=== PATIENT | female | born 1985 | race African-American/Black ===

== ENCOUNTER 2019-02-28 04:27 | Emergency (ER) | payer MEDICAID ==
[~2019-02-28] VITALS: Ht 172.7 cm; Wt 65.8 kg
--- NOTE | 2019-02-28 04:27 | NUR ---
ED Nurse Note: Patient in room one labs drawn. Complaining of tightness in stomach has just started menstrual cycle. Feeslnauseous, retching and produced only foam - no vomit.
[2019-02-28] MEDS ORDERED: Dicyclomine HCl 10mg/5ml oral soln ORAL ONE (04:45)
[2019-02-28] MEDS ORDERED: Mylanta II UD 30ml ORAL ONE (04:45)
--- NOTE | 2019-02-28 04:46 | Emergency Room Report ---
History of Present Illness General Chief Complaint: Abdominal Pain Source: Patient, EMS Present Illness HPI Patient presents by paramedics with reports of epigastric abdominal pain Paramedics gave a report that the patient appears to be malingering to them They report that the area with the patient was sleeping was being cleaned and patient called the paramedics Here the patient reports that she took several more of her buspar This was not an attempt to hurt herself or kill herself patient reports that she wanted to sleep and it was loud outside Denies any diarrhea patient reports some increased nausea denies any fevers or chills denies any chest pain or shortness of breath Allergies: Coded Allergies: IBUPROFEN (Verified Allergy, Mild, 02/28/19) PENICILLINS (Verified Allergy, Mild, 02/28/19) SERTRALINE (Verified Allergy, Mild, 02/28/19) Patient History Past Medical History: see triage record Reviewed Nursing Documentation: PMH: Agreed; PSxH: Agreed Nursing Documentation-PMH Past Medical History: No History, Except For Hx Hypertension: Yes Review of Systems All Other Systems: negative except mentioned in HPI Physical Exam Vital Signs Date Time Temp Pulse Resp B/P (MAP) Pulse Ox O2 Delivery O2 Flow Rate FiO2 02/28/19 04:27 98.4 72 12 /152 100 Room Air Sp02 EP Interpretation: reviewed, normal General Appearance: well appearing, no apparent distress Head: normocephalic, atraumatic Eyes: bilateral eye PERRL, bilateral eye EOMI ENT: hearing grossly normal, normal pharynx, TMs + canals normal, uvula midline Neck: full range of motion, supple, no meningismus, no bony tend Respiratory: lungs clear, normal breath sounds, no rhonchi, no respiratory distress, no retraction, no accessory muscle use Cardiovascular #1: normal peripheral pulses, regular rate, rhythm, no edema, no gallop, no JVD, no murmur Gastrointestinal: normal bowel sounds, non tender, soft, no mass, no organomegaly, non-distended, no guarding, no hernia, no pulsatile mass, no rebound Genitourinary: no CVA tenderness Musculoskeletal: normal inspection Neurologic: oriented x3, responsive, flower cutter III-XII nml as tested, motor strength/ tone normal, sensory intact Psychiatric: mood/affect normal, no suicidal/homicidal ideation Skin: no rash Lymphatic: normal inspection, no adenopathy Medical Decision Making Diagnostic Impression: Primary Impression: Abdominal pain Additional Impression: Vomiting ER Course With the patient's history and examination, multiple differentials considered, including but not limited to , ectopic , ovarian torsion, gastritis, cholecystitis, pancreatitis, appendicitis Patient's lower abdomen is soft Good bowel sounds Patient does not show any signs of acute distress or active vomiting Potassium level is mildly low this is not otherwise intervened with Patient had other medication provided including GI cocktail does feel significantly improved at this time is stable for close outpatient follow-up and return with any changes in symptoms Labs Test 02/28/19 04:45 White Blood Count 5.4 K/UL (4.8-10.8) Red Blood Count 4.31 M/UL (4.20-5.40) Hemoglobin 10.4 G/DL (12.0-16.0) Hematocrit 33.3 % (37.0-47.0) Mean Corpuscular Volume 77 FL (80-99) Mean Corpuscular Hemoglobin 24.1 PG (27.0-31.0) Mean Corpuscular Hemoglobin Concent 31.2 G/DL (32.0-36.0) Red Cell Distribution Width 16.3 % (11.6-14.8) Platelet Count 259 K/UL (150-450) Mean Platelet Volume 6.7 FL (6.5-10.1) Neutrophils (%) (Auto) 63.6 % (45.0-75.0) Lymphocytes (%) (Auto) 25.0 % (20.0-45.0) Monocytes (%) (Auto) 8.0 % (1.0-10.0) Eosinophils (%) (Auto) 2.7 % (0.0-3.0) Basophils (%) (Auto) 0.8 % (0.0-2.0) Sodium Level 141 MMOL/L (136-145) Potassium Level 3.0 MMOL/L (3.5-5.1) Chloride Level 108 MMOL/L (98-107) Carbon Dioxide Level 28 MMOL/L (21-32) Anion Gap 5 mmol/L (5-15) Blood Urea Nitrogen 6 mg/dL (7-18) Creatinine 0.8 MG/DL (0.55-1.30) Estimat Glomerular Filtration Rate > 60 mL/min (>60) Glucose Level 89 MG/DL (74-106) Calcium Level 8.5 MG/DL (8.5-10.1) Total Bilirubin 0.4 MG/DL (0.2-1.0) Aspartate Amino Transf (AST/SGOT) 13 U/L (15-37) Alanine Aminotransferase (ALT/SGPT) 18 U/L (12-78) Alkaline Phosphatase 39 U/L (46-116) Total Protein 6.9 G/DL (6.4-8.2) Albumin 3.8 G/DL (3.4-5.0) Globulin 3.1 g/dL Albumin/Globulin Ratio 1.2 (1.0-2.7) Human Chorionic Gonadotropin, Qual Negative (NEGATIVE) Last Vital Signs Date Time Temp Pulse Resp B/P (MAP) Pulse Ox O2 Delivery O2 Flow Rate FiO2 02/28/19 04:27 98.4 72 12 /152 100 Room Air Status: improved Disposition: HOME, SELF-CARE Condition: Improved Additional Instructions: Patient is provided with the discharge instructions notified to follow up with primary doctor in the next 2-3 days otherwise return to the er with any worsening symptoms. Please note that this report is being documented using [employer] technology. This can lead to erroneous entry secondary to incorrect interpretation by the dictating instrument. Colton Loera DO Feb 28, 2019 04:46
[2019-02-28 04:52] VITALS: BP 152/104
[2019-02-28 05:24] LABS: BASOPHILS % (AUTO) 0.8 % (0.0-2.0); EOSINOPHILS % (AUTO) 2.7 % (0.0-3.0); HEMATOCRIT 33.3 % (37.0-47.0); HEMOGLOBIN 10.4 G/DL (12.0-16.0); MEAN CORPUSCULAR VOLUME 77 FL (80-99); NEUTROPHILS % (AUTO) 63.6 % (45.0-75.0); PLATELET COUNT 259 K/UL (150-450); RED BLOOD COUNT 4.31 M/UL (4.20-5.40); RED CELL DISTRIBUTION WIDTH 16.3 % (11.6-14.8); WHITE BLOOD COUNT 5.4 K/UL (4.8-10.8)
[2019-02-28 05:26] LABS: ANION GAP 5 mmol/L (5-15); BLOOD UREA NITROGEN 6 mg/dL (7-18); CALCIUM 8.5 MG/DL (8.5-10.1); CARBON DIOXIDE 28 MMOL/L (21-32); CHLORIDE 108 MMOL/L (98-107); CREATININE 0.8 MG/DL (0.55-1.30); SODIUM 141 MMOL/L (136-145)
[2019-02-28 05:30] LABS: ALANINE AMINOTRANSFERASE 18 U/L (12-78); ALBUMIN 3.8 G/DL (3.4-5.0); ALBUMIN/GLOBULIN RATIO 1.2 (1.0-2.7); ALKALINE PHOSPHATASE 39 U/L (46-116); ASPARTATE AMINO TRANSFERASE 13 U/L (15-37); BILIRUBIN,TOTAL 0.4 MG/DL (0.2-1.0)
[2019-02-28] MEDS ORDERED: ZOFRAN4 M1 ORAL (05:35)
[2019-02-28 06:30] VITALS: BP 143/104
--- NOTE | 2019-02-28 06:30 | NUR ---
ED Nurse Note: Pt cleared by ERMD for discharge. DC instructions/prescription was given and explained to pt and verbalized understanding of teachings. All medical devices such as ID band and IV line removed. Pt is AAO x4, ambulatory and left with all personal belongings.
[2019-02-28] MEDS ORDERED: BUSPIRONE HCL15 MG ORAL (07:16)
[2019-02-28] MEDS ORDERED: PROPRANOLOL HCL80 M1 ORAL (07:16)
[2019-02-28] MEDS ORDERED: MIRTAZAPINE15 MG ORAL (07:16)
[2019-02-28 10:53] LABS: APPEARANCE,URINE CLEAR; BILIRUBIN, URINE NEGATIVE (NEGATIVE); COLOR,URINE PALE YELLOW; GLUCOSE, URINE (UA) NEGATIVE (NEGATIVE); KETONES,URINE NEGATIVE (NEGATIVE); LEUKOCYTE ESTERASE ,URINE NEGATIVE (NEGATIVE); NITRITE,URINE NEGATIVE (NEGATIVE); PH,URINE 8 (4.5-8.0); PROTEIN,URINE NEGATIVE (NEGATIVE); UROBILINOGEN,URINE NORMAL MG/DL (0.0-1.0)
== END 2019-02-28 06:30 | disposition home or self-care (01) ==
LOC: EDBD 04:27 → EMR 05:00
DX: R10.13 Epigastric pain (principal); R11.10 Vomiting, unspecified; I10 Essential (primary) hypertension; Z88.8 Allergy status to other drugs, medicaments and biological substances; Z88.0 Allergy status to penicillin
CPT/HCPCS: 36415; 80053; 80307; 81003; 81025; 84703; 85025; Z7502; 99284

== ENCOUNTER 2019-02-28 06:53 | Emergency (ER) | payer MEDICAID ==
[2019-02-28] VITALS (8 sets, daily range): BP systolic 136–172; BP diastolic 68–114
[~2019-02-28] VITALS: Ht 167.6 cm; Wt 53.1 kg
[~2019-02-28 06:53] MED LIST: ZOFRAN4 M1 ORAL
--- NOTE | 2019-02-28 07:15 | NUR ---
ED Nurse Note: Came to ED due to feeling anxious. Per pt, she got discharge from [facility] ED just now but came back for anxiety medication. Breathing normal/unlabored. Skin warm/dry. NAD noted.
[2019-02-28] MEDS ORDERED: PROPRANOLOL HCL80 M1 ORAL (07:16)
[2019-02-28] MEDS ORDERED: BUSPIRONE HCL15 MG ORAL (07:16)
[2019-02-28] MEDS ORDERED: MIRTAZAPINE15 MG ORAL (07:16)
--- NOTE | 2019-02-28 07:30 | NUR ---
ED Nurse Note: Food was offered to pt but pt refused. Pt is resting in [facility]. NAD noted
--- NOTE | 2019-02-28 07:43 | Emergency Room Report ---
History of Present Illness General Chief Complaint: General Complaint Source: Patient, Medical Record Present Illness HPI Patient Is a 34-year-old female recently seen in this emergency department for abdominal pain. Patient reports of increased anxiety. She reportedly has been taking psychiatric medications including Remeron, and several others. She reportedly had not been taking Remeron. She states that she takes BuSpar for anxiety. She is requesting Xanax. She does not recall her psychiatrist name. History is markedly limited by poor historian. Allergies: Coded Allergies: IBUPROFEN (Verified Allergy, Mild, 02/28/19) PENICILLINS (Verified Allergy, Mild, 02/28/19) SERTRALINE (Verified Allergy, Mild, 02/28/19) Patient History Past Medical History: see triage record Last Menstrual Period: 02/28/19 Reviewed Nursing Documentation: PMH: Agreed; PSxH: Agreed Nursing Documentation-PMH Past Medical History: No History, Except For Hx Hypertension: Yes History Of Psychiatric Problem: Yes - anxiety Review of Systems All Other Systems: limited Narrative by poor historian Physical Exam Vital Signs Date Time Temp Pulse Resp B/P (MAP) Pulse Ox O2 Delivery O2 Flow Rate FiO2 02/28/19 07:10 97.9 92 18 170/105 (126) 99 Room Air Sp02 EP Interpretation: reviewed, normal General Appearance: alert, GCS 15, non-toxic Head: atraumatic ENT: normal ENT inspection, hearing grossly normal, normal voice Neck: normal inspection, full range of motion, supple, no bony tend Respiratory: normal inspection, lungs clear, normal breath sounds, no respiratory distress, no retraction, no wheezing Cardiovascular #1: regular rate, rhythm, no edema Gastrointestinal: normal inspection, normal bowel sounds, non tender, soft, no guarding, no hernia Genitourinary: no CVA tenderness Musculoskeletal: normal inspection, back normal, normal range of motion Neurologic: normal inspection, alert, oriented x3, responsive, hairpiece stylist III-XII nml as tested, speech normal Psychiatric: normal inspection, mood/affect normal, anxious - no tremor Medical Decision Making Diagnostic Impression: Primary Impression: Psychosis Additional Impression: Anxiety ER Course Patient presented for increased agitation and anxiety. Differential diagnoses include substance abuse, psychosis, bipolar disorder, depression, malingering. Because of complexity of patient's case laboratory tests and imaging studies were ordered. Patient was noted to have recent laboratory testing on prior visit. Additional laboratory testing was ordered to for medical clearance for possible psychiatric placement. Patient states that she had previously been on psychiatric medications. patient is medically cleared for psychiatric referral. test was noted to be negative as was urine drug screen. Blood alcohol was 0.Patient was seen by web content & social media manager and agreed with voluntary psychiatric placement. Labs Test 02/28/19 10:35 Serum Alcohol < 3 mg/dL Last Vital Signs Date Time Temp Pulse Resp B/P (MAP) Pulse Ox O2 Delivery O2 Flow Rate FiO2 02/28/19 07:10 97.9 92 18 170/105 (126) 99 Room Air Status: improved Disposition: XFER TO PSYCH HOSP/UNIT Condition: Stable Jaiden Augustine MD Feb 28, 2019 07:43
[2019-02-28] MEDS ORDERED: BusPIRone 5mg Tab ORAL ONE (08:00)
--- NOTE | 2019-02-28 10:04 | NUR ---
ED Nurse Note: Mignon MUÑIZ at bedside.
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
--- NOTE | 2019-02-28 10:38 | NUR ---
Social Work This SW contacted [facility] inpatient psychiatric unit ([phone]) and faxed chart information to [phone]; awaiting eval at this time.
--- NOTE | 2019-02-28 12:20 | NUR ---
ED Nurse Note: pt sleeping in gurney. juice and sandwich provided to pt. Breathing normal/even/unlabored. Skin warm/dry/intact. NAD noted.
--- NOTE | 2019-02-28 16:30 | NUR ---
SS note Faisal, intake @ [facility] ([phone]) has accepted patient for transfer to their inpatient psyhciatric facility. RN to RN to be made to: [phone]. Dr. Walter will be assigned to patient there. RN to arrange ambulance when ready for transfer. ED nursing informed.
--- NOTE | 2019-02-28 16:37 | NUR ---
ED Nurse Note: PT sleeping in gurney. Breathing normal/even/unlabored. NAD noted. Contacted [facility] to give telephone report, nobody picked up the phone at this time. CECILIA Mayes was informed and will contact the facility again.
--- NOTE | 2019-02-28 18:53 | NUR ---
ED Nurse Note: PT SLEEPING IN GURNEY. NAD NOTED. PT REFUSED WATER AND SANDWICH.
--- NOTE | 2019-02-28 19:09 | NUR ---
HAND-OFF: PT RESTING IN [facility]. NAD NOTED. RN ATTEMPED TO GIVE REPORT TO MARGARET FULLER BUT NOBODY PICKED UP. Report given to ANTHONY MAY AND RN MADE AWARE.
--- NOTE | 2019-02-28 19:24 | NUR ---
ED Nurse Note: Patient in OBGYN denies pain intermittently tearful emotional support provided.
--- NOTE | 2019-02-28 20:00 | NUR ---
ED Nurse Note:Called [facility]. Spokenwith Adeline to give RN to RN handover. Patient to be admitted no specific bed number given. Contact number for Adeline [phone].
--- NOTE | 2019-02-28 20:30 | NUR ---
ED Nurse Note: Discussed with Dr cannot see toxicoogy or screen urine on file. Order placed. Urine sample requested. Also discussed K result and patient usually takes propanolo 80mg for BP daily - but has not taken for [address] order.
[2019-02-28] MEDS ORDERED: PROPRANOLOL 80 MG ORAL ONE (21:00)
[2019-02-28] MEDS ORDERED: Propranolol 40mg tab ORAL ONE (21:15)
--- NOTE | 2019-02-28 23:00 | NUR ---
ED Nurse Note: Patiehnt awaiting transfer to [facility]. Currently sleeping but easily rousable vital signs rechecked.
--- NOTE | 2019-02-28 23:50 | NUR ---
ER TRANSFER NOTE: Patient is cleared to be TRANSFERRED per ERMD, pt is aox4, on room air, with stable vital signs. pt was transferred via BLS ambulance report given to EMT, pt was able to verbalize understanding. pt is able to ambulate with steady gait. pt took all belongings.
--- NOTE | 2019-03-01 05:10 | NUR ---
Received a call from officer Jose # [phone] after patient being transferred to [place] requesting additional information. Officer advised to seek additional information through medical records since officers identity is not proven over the phone.Officer agreed.
== END 2019-02-28 23:50 ==
LOC: EMR 07:46
DX: F29 Unspecified psychosis not due to a substance or known physiological condition (principal); F41.9 Anxiety disorder, unspecified; I10 Essential (primary) hypertension; Z88.0 Allergy status to penicillin; Z88.8 Allergy status to other drugs, medicaments and biological substances
CPT/HCPCS: 36415; 80307; 81025; G0480; Z7502; 99285; J8499